=== PATIENT | female | born 1950 | race Caucasian/White ===

== ENCOUNTER → 2018-07-24 | Outpatient (CLI) | payer OTHER ==
[~2018-07-24] MED LIST: IOPAMIDOL (ISOVUE-300) 150 ML BTL ONE
== END ==
LOC: FIMAGING 13:14
PROVIDERS: ATTEND Specialist
DX: N28.1 Cyst of kidney, acquired (principal); R91.1 Solitary pulmonary nodule
CPT/HCPCS: 74178; Q9967; 82565-PO

== ENCOUNTER 2019-04-03 14:18 | Inpatient (IN) | payer OTHER | END 2019-04-05 16:28 | disposition home or self-care (01) | LOC: F2W 17:26 ==